=== PATIENT | female | born 1985 ===

== ENCOUNTER 2017-12-07 15:00 | Emergency (ER) | payer OTHER ==
[2017-12-07 18:09] VITALS: BP 137/82
--- NOTE | 2017-12-07 18:15 | ED ---
Respiratory - HPI Summary HPI Summary: 32 y/op female presents to the urgent care c/o sinus congestion and pain for the past 3 days. Pt reports symptoms started w/nasal congestion and clear nasal discharge, then dry cough , now w/ chest congestion. Pt also reports freqeuncy and burning or urination since yesterday. She has HX of UTI. She has been taking cranberry pills to alleviate symptoms. Pt denies fever, lower back pain, flank pain, SOB, chest pain, abdominal pain, N/V/d, vaginal discharge, Hx of STD 's. LMP:11/09/2017 w/ regular menstrual cycles. - History of Current Complaint Chief Complaint: UCGeneralIllness Stated Complaint: COUGH CONGESTION Time Seen by Provider: 12/07/17 18:12 Hx Obtained From: Patient Onset/Duration: Gradual Onset, Lasting Weeks - 1 week, Still Present, Worse Since - yesterday Timing: Constant Initial Severity: Mild Current Severity: Moderate Pain Intensity: 5 Character: Cough (Productive) Sputum Amount: Scant Sputum Color: Yellow Aggravating Factor(s): URI, Other - exposed to co-worker w/ the flu Alleviating Factor(s): OTC Medications, Rest Associated Signs and Symptoms: Fever, URI, Sinus Infection, Chills - Risk Factors Status Asthmaticus Risk Factors: Negative Pulmonary Embolism Risk Factors: Negative Cardiac Risk Factors: Negative Pseudomonas Risk Factors: Negative Tuberculosis Risk Factors: Negative - Allergy/Home Medications Allergies/Adverse Reactions: Allergies Allergy/AdvReac Type Severity Reaction Status Date / Time No Known Allergies Allergy Verified 12/07/17 17:54 Home Medications: Home Medications Albuterol HFA INHALER* [Ventolin HFA Inhaler*] 2 puff INH Q6H PRN 12/07/17 [ History Confirmed 12/07/17] Cranberry Conc/C/Bacill Coag [Cranberry Tablet] 1 each PO 12/07/17 [History] D Vitamin 12/07/17 [History Confirmed 12/07/17] Multivitamin [Multivitamins] 1 cap PO 12/07/17 [History] Naproxen Sodium [Aleve] 220 mg PO 12/07/17 [History] Norgestimate-Eth Estradiol(NF) [Ortho Tri-Cyclen (NF)] 1 tab PO DAILY 12/07/17 [ History Confirmed 12/07/17] Vandemere-3 Fatty Acids/Fish Oil [Fish Oil 1,000 mg Capsule] 1 each PO 12/07/17 [ History] Vitamin E (Dl,Tocopheryl Acet) [E-200] 200 unit PO 12/07/17 [History] PMH/Surg Hx/FS Hx/Imm Hx Previously Healthy: Yes Respiratory History: Reports: Hx Asthma - ON DAILY MEDS, HAS AVAILABLE RESCUE INHALER, RARELY USES Sensory History: Reports: Hx Contacts or Glasses - GLASSES Opthamlomology History: Reports: Hx Contacts or Glasses - GLASSES - Surgical History Surgery Procedure, Year, and Place: FOOT SURGERY-LEFT Infectious Disease History: No Infectious Disease History: Denies: Traveled Outside the [place] in Last 30 Days - Family History Known Family History: Positive: Hypertension - Social History Occupation: Employed Full-time Lives: With Family Alcohol Use: Occasionally Substance Use Type: Reports: None Smoking Status (MU): Former Smoker Review of Systems Positive: Fever, Chills Eyes: Negative Positive: Sore Throat - mild, Nasal Discharge - yellowish nasal discharge Cardiovascular: Negative Positive: Cough Gastrointestinal: Negative Genitourinary: Negative Musculoskeletal: Negative Skin: Negative Positive: Headache Psychological: Normal All Other Systems Reviewed And Are Negative: Yes Physical Exam - Summary Physical Exam Summary: VITAL SIGNS: Reviewed. GENERAL: Patient is a well developed and nourished female who is sitting comfortable in the examining table. Patient is not in any acute respiratory distress. HEAD AND FACE: No signs of trauma. No ecchymosis, hematomas or skull depressions. No sinus tenderness. edematous erythematous nasal mucosa with yellowish discharge, EYES: PERRLA, EOMI x 2, No injected conjunctiva, clear watery eyes, no nystagmus. No photophobia. EARS: Hearing grossly intact. Ear canals and tympanic membranes are within normal limits. MOUTH: Positive pharynx with erythema, no exudates,no palatal petechiae. no B/L tonsillar enlargement Uvula in midline. NECK: Supple, trachea is midline, Positive anterior cervical lymphadenopathy, no JVD, no carotid bruit, no c-spine tenderness, neck with full ROM. No meningeal signs, no Kernig's or brudzinskis signs. CHEST: Symmetric, no tenderness at palpation LUNGS: Clear to auscultation bilaterally. No wheezing or crackles. CVS: Regular rate and rhythm, S1 and S2 present, no murmurs or gallops appreciated. ABDOMEN: Soft, non-tender. No signs of distention. No rebound no guarding, and no masses palpated. Bowel sounds are normal. BACK:no scoliosis or lesions, non tender to palpation, No B/L CVA tenderness. EXTREMITIES: FROM in all major joints, no edema, no cyanosis or clubbing. NEURO: Alert and oriented x 3. No acute neurological deficits. Speech is normal and follows commands. SKIN: Dry and warm Triage Information Reviewed: Yes Vital Signs On Initial Exam: Initial Vitals Temp Pulse Resp BP Pulse Ox 97.9 F 77 16 137/82 100 12/07/17 18:00 12/07/17 18:00 12/07/17 18:00 12/07/17 18:00 12/07/17 18:00 Diagnostics - Vital Signs Vital Signs Temp Pulse Resp BP Pulse Ox 12/07/17 18:00 97.9 F 77 16 137/82 100 - Laboratory Lab Statement: Any lab studies that have been ordered have been reviewed, and results considered in the medical decision making process. Disposition - Course Course Of Treatment: 32 y/op female presents to the urgent care c/o sinus congestion and pain for the past 3 days. Pt reports symptoms started w/nasal congestion and clear nasal discharge, then dry cough , now w/ chest congestion. Pt also reports freqeuncy and burning or urination since yesterday. She has HX of UTI. She has been taking cranberry pills to alleviate symptoms. Pt denies fever, lower back pain, flank pain, SOB, chest pain, abdominal pain, N /V/d, vaginal discharge, Hx of STD's. LMP:11/09/2017 w/ regular menstrual cycles. Pt w/ URI on examination. Influenza A&B ordered: result: Influenza A positive.UA : trace of blood. Urine culture ordered and sent to lab to r/o any abdnomality since Pt has been taking cramberry pills. Pt will be notified. Pt Rx Tamiflu PO , Pyridum PO and ibuprofen PO to alleviates symptoms. Advised on hand washing and wear a mask to avoid spreading. Pt advised to rest, increase fluid intake, eat well and avoid strenuous exercise. If symptoms do not improve or worsen advised to return to the urgent care or f/u with her PCP for further evaluation and treatment. Pt understood and agreed with plan of care. - Differential Dx - Cardiopulmonary Differential Diagnoses - Cardiopulmonary: Asthma, Bronchitis, Influenza, Laryngitis, Lower Resp Infection, Sinusitis, Other - UTI, renal colic, kidney stone - Diagnoses Provider Diagnoses: Influenza A, Dysuria Discharge - Discharge Plan Condition: Stable Disposition: HOME Prescriptions: Albuterol HFA INHALER* [Ventolin HFA Inhaler*] 1 - 2 puff INH Q6H PRN #1 mdi PRN Reason: Sob/Wheezing Ibuprofen TAB* [Motrin TAB* 800 MG] 800 mg PO Q6H PRN #20 tab PRN Reason: Fever Oseltamivir CAP* [Tamiflu CAP*] 75 mg PO BID #10 cap Phenazopyridine TAB* [Pyridium 100 mg TAB*] 100 mg PO TID #6 tab Patient Education Materials: Influenza (ED), Dysuria (ED) Forms: *Work Release Referrals: [facility] [Outside] - 3 Days Additional Instructions: 1- Please take the full course of the antiviral to avoid resistance. Encourage hand washing and wear a mask to avoid spreading. 2-Please continue taking Ibuprofen PO q6-8hrs prn as instructed after meals to alleviate fever, and sore throat. Increase fluid intake, eat well, rest and avoid strenuous exercise 3-If symptoms do not improve or worsen please return to the urgent care or f/u with your PCP in 2 days for further evaluation and treatment. 4-Urine was only +for trace of blood. It can be the beginning of your period. Urine culture was sent to lab to r/o any abnormality since you have been taking the cranberry pills. You will be notified. However if you develop flank pain , fever, or pain w/ urination please go immediately to the ER for further treatment
== END 2017-12-07 19:22 | disposition home or self-care (01) ==
LOC: UCCORT 15:00
DX: J11.1 Influenza due to unidentified influenza virus with other respiratory manifestations (principal); R30.0 Dysuria; Z87.440 Personal history of urinary (tract) infections; J45.909 Unspecified asthma, uncomplicated; Z87.891 Personal history of nicotine dependence
CPT/HCPCS: 81003; 87086; 87502; 99202; G0463

== ENCOUNTER 2019-11-23 07:39 | Emergency (ER) | payer BC ==
[2019-11-23 07:54] VITALS: BP 120/73
--- NOTE | 2019-11-23 08:03 | UC ---
Respiratory Complaint HPI - HPI Summary HPI Summary: cough x 4 days cough is productive , yellow sputum + nasal congestion , sore throat, fever, chills, body aches not better with otc meds - History of Current Complaint Chief Complaint: UCRespiratory Stated Complaint: CHEST CONGESTION COUGH Time Seen by Provider: 11/23/19 07:55 Hx Obtained From: Patient Hx Last Menstrual Period: 10/31/19 ?: No Onset/Duration: Gradual Onset, Lasting Days - 4, Still Present Timing: Constant Severity Initially: Moderate Severity Currently: Moderate Pain Intensity: 5 Character: Cough: Productive Aggravating Factors: Exertion, Deep Breaths Alleviating Factors: Nothing Associated Signs And Symptoms: Positive: Fever, Chills, URI, Nasal Congestion. Negative: Wheezing - Allergies/Home Medications Allergies/Adverse Reactions: Allergies Allergy/AdvReac Type Severity Reaction Status Date / Time No Known Allergies Allergy Verified 11/23/19 07:47 Home Medications: Home Medications D-Methorphan/PE/Acetaminophen [Vicks Dayquil Liquicaps] 2 each PO Q4H PRN [History Confirmed 11/23/19] PMH/Surg Hx/FS Hx/Imm Hx Previously Healthy: Yes - Surgical History Surgical History: Yes Surgery Procedure, Year, and Place: FOOT SURGERY-LEFT - Family History Known Family History: Positive: Hypertension - Social History Alcohol Use: Occasionally Substance Use Type: None Smoking Status (MU): Former Smoker When Did the Patient Quit Smoking/Using Tobacco: 2014 Review of Systems All Other Systems Reviewed And Are Negative: Yes Constitutional: Positive: Fever, Chills, Fatigue Skin: Positive: Negative Eyes: Positive: Negative ENT: Positive: Sore Throat, Nasal Discharge Respiratory: Positive: Cough Cardiovascular: Positive: Negative Musculoskeletal: Positive: Arthralgia, Myalgia Is Patient Immunocompromised?: No Physical Exam Triage Information Reviewed: Yes Appearance: Well-Appearing, No Pain Distress, Well-Nourished Vital Signs: Initial Vital Signs Temp 97.6 F 11/23/19 07:49 Pulse 112 11/23/19 07:49 Resp 18 11/23/19 07:49 BP 120/73 11/23/19 07:49 Pulse Ox 99 11/23/19 07:49 Vital Signs Reviewed: Yes Eye Exam: Normal Eyes: Positive: Conjunctiva Clear ENT Exam: Normal ENT: Positive: Normal ENT inspection, Hearing grossly normal, Nasal congestion Neck exam: Normal Neck: Positive: Supple, Nontender, No Lymphadenopathy Respiratory: Positive: Chest non-tender, Lungs clear, Normal breath sounds Cardiovascular: Positive: Tachycardia Skin Exam: Normal Respiratory Course/Dx - Differential Dx/Diagnosis Provider Diagnosis: Flu Discharge ED - Sign-Out/Discharge Documenting (check all that apply): Patient Departure All imaging exams completed and their final reports reviewed: No Studies - Discharge Plan Condition: Stable Disposition: HOME Patient Education Materials: Influenza (ED) Forms: *Work Release Referrals: Terry Mcmahon MD [Primary Care Provider] - If Needed - Billing Disposition and Condition Condition: STABLE Disposition: Home
== END 2019-11-23 08:05 | disposition home or self-care (01) ==
LOC: UCCORT 07:39
DX: J11.1 Influenza due to unidentified influenza virus with other respiratory manifestations (principal); M25.50 Pain in unspecified joint; Z87.891 Personal history of nicotine dependence
CPT/HCPCS: 99211; G0463